=== PATIENT | male | born 1945 | race Caucasian/White ===

== ENCOUNTER 2021-06-27 16:27 | Observation (INO) | payer OTHER, SELFPAY ==
[2021-06-27] VITALS (8 sets, daily range): BP systolic 100–144; BP diastolic 53–84; PULSE 72–97; RESP 16–98; TEMP 36.9; O2SAT 96–98
--- NOTE | ~2021-06-27 | CT_ITS ---
EXAMINATION: CT brain wo con INDICATION: Altered mental status COMPARISON: None TECHNIQUE: Standard unenhanced head CT. The dose-length product (DLP) was 605.33 mGy-cm. The mA was a djusted according to patient size. Iterative reconstruction technique was employed. FINDINGS: There is no acute intraparenchymal hemorrhage. No evidence of mass lesion. No evidence of a cute infarction. There is mild periventricular and subcortical hypodensity probably related to small vessel ischemic disease. There is mild prominence of the sulci and ventricles related to cerebral atr ophy. Intracranial calcified cerebral atherosclerosis is noted. There are no extra-axial collections. There is no mass effect or midline shift. The orbits and soft tissues are unremarkable. There is mil d mucosal thickening of the paranasal sinuses. IMPRESSION: 1. No acute intracranial abnormality. 2. Age related findings. Reviewed, dictated and finalized at location [facility]. [facility]
--- NOTE | ~2021-06-27 | XR_ITS ---
EXAMINATION: XR chest 1V INDICATION: Transient alteration of awareness TECHNIQUE: AP view the chest is obtained. COMPARISON: None available FINDINGS: There are minimal opacities of the lung bases. There is no pleural effusion or pneumothorax . The cardiomediastinal silhouette is normal. IMPRESSION: 1. Minimal bibasilar airspace opacities, consistent with atelectasis versus pneumonia. Reviewed, dictated and finalized at location [facility]. [facility] IMPRESSION: 1. Minimal bibasilar airspace opacities, consistent with atelectasis versus pne umonia.
--- NOTE | 2021-06-27 16:51 | ECG_ITS ---
Measurements Intervals Boutte Rate: 94 P: 30 UT: 153 QRS: -41 QRSD: 76 T: 46 QT: 346 QTc: 433 Interpretive Statements SINUS RHYTHM LEFT AXIS DEVIATION BORDERLINE ST-T WAVE ABNORMALITY- ANT/INF LEADS BASELINE ARTIFACT- I, II, III, AVR, AVL, AVF, V1-V6 BORDERLINE ECG Electronically Signed On 06-27-2021 19:58:32 HEADLIGHT ADJUSTER by Arsen Carey D.O.
--- NOTE | 2021-06-27 16:59 | ED.GENADULT ---
HPI - General Adult General Chief complaint: Altered Mental Status Stated complaint: AMS Time Seen by Provider: 06/27/21 16:38 Source: patient and EMS Mode of arrival: EMS Limitations: altered mental status History of Present Illness HPI narrative: Patient brought in by EMS with reports of altered mental status. EMS informed me that they were contacted to come to a residence today after pt began shaking and became less responsive while watching television with his family. Pt recently moved to the area from [place], which patient states was due to financial reasons. Family does not know much about pt's past medical history. EMS indicated that when they arrived pt was breathing but only aroused to sternal rub. They noted a small amount of dried blood in his mouth. Pt was confused en route while in company of EMS. However when the pulled into parking lot, pt became alert and fidgety. On my initial evaluation, pt states that he has no complaints whatsoever and is unsure why he is here at the hospital. He is able to answer my questions appropriately but exhibits some odd behavior. He does admit to using marijuana regularly. He denies drugs use. He does admit to drinking several days per week. He states he has no underlying medical problems. Related Data Home Medications Medication Instructions Recorded Confirmed No Home Medications 06/27/21 06/27/21 Allergies Allergy/AdvReac Type Severity Reaction Status Date / Time No Known Allergies Allergy Verified 06/27/21 16:43 Review of Systems Review of Systems: CONSTITUTIONAL: Denies fever, chills, or sweats. EYES: Denies visual changes, redness, or discharge. ENT: Denies rhinorrhea, congestion, sore throat, or otalgia. CARDIOVASCULAR: Denies chest pain, palpitations, or edema. RESPIRATORY: Denies cough or dyspnea. GASTROINTESTINAL: Denies abdominal pain, nausea, vomiting, or diarrhea. GENITOURINARY: Denies dysuria or hematuria. SKIN: Denies rash or itching. MUSCULOSKELETAL: Denies back pain, joint pain, or myalgia. NEUROLOGIC: Denies headache, numbness, dizziness, or weakness. PSYCHIATRIC: Denies anxiety or depression. [facility] Past Medical History Medical History (Updated 06/27/21 @ 21:10 by Odell Mcmahon, KIM, BC) No pertinent past medical history Surgical History Surgical History (Updated 06/27/21 @ 16:59 by NAVI PerezP, ) History of left knee surgery Family History Family History Mother No pertinent past medical history Social History Social History Alcohol intake: current Alcohol use details: Reports drinking a few times per week Substance use type: marijuana Living arrangements: with family Gender identity (if verbalized by the patient): Male Spiritual care concerns: No Exam Narrative: GENERAL: Well-appearing, well-nourished, and in no acute distress. HEAD: Normocephalic, atraumatic. EYES: PERRLA and EOMI. ENT: Nares clear, no rhinorrhea or epistaxis. Mucous membranes moist. Oropharynx without tonsillar hypertrophy exudate or other lesions. Bilateral TMs pearly elena nonbulging NECK: Supple. No adenopathy or masses. No carotid bruits or JVD CHEST: Clear to auscultation. No respiratory distress. No wheezes rales or rhonchi HEART: Regular rate and rhythm. No murmur heard. Normal peripheral pulses. ABDOMEN: Soft, nontender, nondistended, normal active bowel sounds. EXTREMITIES: Normal range of motion. No edema. SKIN: Warm, dry, no rash. NEURO: No focal deficits. Alert and oriented x3. NIH Score 0 PSYCH: Odd affect, easily distracted, fidgety Course Course Emergency Course: This is a 75-year-old male who presented with reports of altered mental status. On initial evaluation he was oriented x3 but exhibited bizarre affect. Was called to the room after patient had a witnessed seizure that lasted approxim
--- NOTE | 2021-06-27 17:12 | PC.NURSE ---
Placed seizure pads on patient's bed.
--- NOTE | 2021-06-27 17:15 | PC.NURSE ---
roommate reported that the pt was having a seizure, stopped when staff arrived in room. described as grand mal. vorb for 1 g Keppra iv and Ativan 1 mg ivp x1 from [employer] [facility]
[2021-06-27] MEDS: levETIRAcetam 1000MG/NACL100ML 1,000 MG/100 ML BAG 200 MG (17:17)
[2021-06-27] MEDS: LORazepam INJ (*CRX) 2 MG/ML VIAL (17:17)
[2021-06-27 17:33] LABS: Basophils Percent Auto 0.7 % (0.2-1.2); Eosinophils Absolute Auto 0.1 K/mm3 (0-0.3); Eosinophils Percent Auto 1.6 % (0-4.4); Hematocrit 41.3 % (42.0-52.0); Hemoglobin 13.4 g/dL (14.0-18.0); Immature Granulocyte Absolute 0.01 K/mm3 (0.00-0.031); Immature Granulocyte Percent A 0.2 % (0-0.5); Immature Platelet Fraction Pct 6.7 % (0.9-11.2); Lymphocytes Absolute Auto 0.83 K/mm3 (0.9-3.2); Lymphocytes Percent Auto 18.6 % (18.3-44.2); Mean Corpuscular HGB Conc 32.4 g/dl (32-36); Mean Corpuscular Hemoglobin 32.2 pg (26-34); Mean Corpuscular Volume 99.3 fl (80-100); Mean Platelet Volume 11.1 fl (7.4-10.4); Monocytes Absolute Auto 0.5 K/mm3 (0.1-0.6); Monocytes Percent Auto 10.1 % (2.6-8.5); Neutrophils Absolute Auto 3.1 K/mm3 (1.3-6.7); Neutrophils Percent Auto 68.8 % (45.5-73.1); Platelet Count Result 114 k/mm3 (150-375); Red Blood Count 4.16 M/mm3 (4.6-6.20); Red Cell Distribution Width 13.2 % (11.5-14.5); White Blood Count 4.5 K/mm3 (4.5-10.0)
[2021-06-27 17:40] LABS: INR 1.3; Prothrombin Time 15.8 Seconds (11.1-14.7)
[2021-06-27 17:41] LABS: Partial Thromboplastin Time 26.4 SECONDS (22.3-36.8)
[2021-06-27 17:53] LABS: Ammonia 75 umol/L (9-30); Ethanol < 10 mg/dL (<10)
[2021-06-27 18:00] LABS: Albumin Level 3.9 g/dL (3.5-5.1); Alkaline Phosphatase 64 U/L (38-126); Anion Gap 22 mmol/L (8-16); Aspartate Amino Transferase 59 U/L (17-59); Bilirubin,Total 0.7 mg/dL (0.2-1.3); Blood Urea Nitrogen 8 mg/dL (9-20); Calcium 8.9 mg/dL (8.4-10.2); Carbon Dioxide 15 mmol/L (22-30); Chloride 103 mmol/L (98-107); Estimated CRCL calculation 52 ml/min; Estimated Glomerular Filt Rate > 60; Glucose 125 mg/dL (65-110); Potassium 3.5 mmol/L (3.4-5.0); Sodium 140 mmol/L (137-145)
[2021-06-27 18:23] LABS: Alanine Aminotransferase 60 U/L (4-50); Free T4 Free Thyroxine 1.31 ng/mL (0.78-2.19)
[2021-06-27 18:39] LABS: SARS-CoV-2 RNA PCR Negative
[2021-06-27] MEDS: THIAMINE HCL INJ 100 MG, FOLIC ACID INJ 1 MG, MULTIVITAMINS-12 INJ VIAL 1 5 ML, MULTIVI... IV CONT (19:22)
[2021-06-27 19:48] LABS: Troponin I < 0.012 ng/mL (0.000-0.034)
[2021-06-27 20:09] LABS: Add Urine Microscopic? YES; Appearance Urine Clear (Clear); Bilirubin Urine Negative (Negative); Blood Urine Negative (Negative); Color Urine Yellow (Yellow); Glucose Urine UA Negative (Negative); Ketones Urine Negative (Negative); Leukocyte Esterase Ur Negative LEU/UL (Negative); Mucus Urine Rare /lpf; Nitrate Urine Negative (Negative); Protein Urine Negative (Negative); RBC Urine 0-2 /hpf (0-2); Specific Grav Ur 1.015 (1.001-1.035); WBC Urine 0-3 /hpf
[2021-06-27 20:24] LABS: Amphetamine Screen Urine Negative (Negative); Barbiturate Screen Urine Negative (Negative); Benzodiazepines Screen Urine Negative (Negative); Cannabinoid Screen Urine Positive (Negative); Cocaine Screen Urine Negative (Negative); Methadone Screen Urine Negative (Negative); Opiate Screen Urine Negative (Negative); Phencyclidine Screen Urine Negative (Negative)
--- NOTE | 2021-06-27 20:35 | PM.IMHP ---
H&P: HPI History of Present Illness Date/Time: 06/27/21 20:35 Chief Complaint: Altered mental status. Narrative: This is a 75-year-old male with known significant past medical history, tobacco dependence, substance abuse. Patient was brought to the emergency room via EMS due to patient's altered mental status while watching TV with the family it was noted that he had on episode of shakiness and unresponsiveness. Upon EMS arrival patient was arousable to sternal rub and roots here patient became awake but fidgety most of the history has been obtained upon reviewing medical records as patient cannot provide any history he is alert and awake however disoriented saying random words and only answers yes or no. Preliminary workup was significant for toxicology positive for marijuana, according to emergency room note patient also drinks alcohol. A chest x-ray was significant for infiltrates at the bases. Patient is being admitted for further evaluation, management and treatment. Review of Systems Review of Systems: ROS unobtainable: Yes unobtainable due to mental status (Delirious) [facility] Past Medical History Medical History (Updated 06/28/21 @ 02:25 by Adi Martines MD) No pertinent past medical history Surgical History Surgical History (Updated 06/27/21 @ 16:59 by KIM Perez, ) History of left knee surgery Family History Family History Mother No pertinent past medical history Social History Social History Smoking packs per day: 1 Smoking cigarettes per day: 20.0 Years smoked: 55 Smoking pack-years: 55.00 Smoking status: Heavy tobacco smoker Tobacco type: cigarettes Second hand tobacco smoke exposure: Yes Alcohol intake: current Drinks per week: 24 Alcohol use details: Reports drinking a few times per week Substance use: current Substance use type: marijuana Living arrangements: with family Gender identity (if verbalized by the patient): Male Spiritual care concerns: No Meds Home Medications and Allergies Home Medications Medication Instructions Recorded Confirmed Type No Home Medications 06/27/21 06/27/21 History Allergies Allergy/AdvReac Type Severity Reaction Status Date / Time No Known Allergies Allergy Verified 06/27/21 16:43 Vital Signs Vital Signs - 24 hr 06/27/21 16:33 06/27/21 17:18 06/27/21 18:03 Temperature 98.4 F Pulse Rate 97 86 86 Respiratory Rate 22 H 21 H 16 Blood Pressure 144/58 H 136/84 Pulse Oximetry 98 98 97 06/27/21 19:06 06/27/21 20:03 Temperature Pulse Rate 72 87 Respiratory Rate 16 98 H Blood Pressure 100/66 136/78 Pulse Oximetry 97 97 Exam Narrative: Patient is sitting in [facility]. Const: General: comfortable, no acute distress, well developed, alert, awake and other (Well-appearing, delirious.) Nutritional Appearance: average body habitus Orientation/consciousness: oriented to person and Other orientation findings (Delirious, restless.) HENMT: Head: normal to inspection, normocephalic and atraumatic Ears: hearing grossly normal bilaterally General nose exam: Normal external nose present Face and sinus: normal facial exam Mouth: Yes Normal oral and palatal mucosa present Eyes: General: appearance normal, both eyes and all related structures Alignment and Position: alignment normal Sclera: sclerae normal Pupils: Equal, round and reactive pupils present EOM: EOMs intact bilaterally Neck: Neck: normal visual inspection, full ROM, no lymphadenopathy, supple and no JVD Thyroid: thyroid normal Lymphatic: no lymphadenopathy noted Resp: Effort & Inspection: normal respiratory effort and able to speak in complete sentences Auscultation: clear to auscultation bilaterally, no crackles, no rales, no rhonchi and no wheezes Cardio: Jugular venous distension: no JVD Rate: regular rate
[2021-06-27] MEDS: LORazepam INJ (*CRX) 2 MG/ML VIAL 1 MG IV PUSH ×2 (20:47→21:25)
--- NOTE | 2021-06-27 20:47 | PC.NURSE ---
pt excitable, ripped out iv, very restless. linen cleaned, new iv placed. vorb for Ativan 1 mg ivp from DEPARTURE CLERK [facility] x1
[2021-06-27 21:06] LABS: Troponin I < 0.012 ng/mL (0.000-0.034)
--- NOTE | 2021-06-27 22:08 | PC.NURSE ---
Shaun is the brother of the pt [phone]
--- NOTE | 2021-06-27 23:20 | PC.NURSE ---
Assumed care of pt at this time. Pt resting on stretcher
[2021-06-28] VITALS (8 sets, daily range): BP systolic 93–130; BP diastolic 55–77; PULSE 67–92; RESP 14–20; TEMP 36.4–37.7; O2SAT 97–98; BMI 20.4
[2021-06-28] MEDS: SODIUM CHLORIDE 0.9% IV 1,000 ML 100 ML IV CONT ×3 (01:33→20:58)
[2021-06-28 06:52] LABS: Basophils Percent Auto 0.3 % (0.2-1.2); Eosinophils Percent Auto 0.3 % (0-4.4); Hematocrit 32.5 % (42.0-52.0); Hemoglobin 10.8 g/dL (14.0-18.0); Immature Granulocyte Absolute 0.03 K/mm3 (0.00-0.031); Immature Granulocyte Percent A 0.5 % (0-0.5); Immature Platelet Fraction Pct 6.4 % (0.9-11.2); Lymphocytes Absolute Auto 0.75 K/mm3 (0.9-3.2); Lymphocytes Percent Auto 11.3 % (18.3-44.2); Mean Corpuscular HGB Conc 33.2 g/dl (32-36); Mean Corpuscular Hemoglobin 32.1 pg (26-34); Mean Corpuscular Volume 96.7 fl (80-100); Mean Platelet Volume 11.5 fl (7.4-10.4); Monocytes Absolute Auto 0.5 K/mm3 (0.1-0.6); Monocytes Percent Auto 7.7 % (2.6-8.5); Neutrophils Absolute Auto 5.3 K/mm3 (1.3-6.7); Neutrophils Percent Auto 79.9 % (45.5-73.1); Platelet Count Result 84 k/mm3 (150-375); Red Blood Count 3.36 M/mm3 (4.6-6.20); Red Cell Distribution Width 13.2 % (11.5-14.5); White Blood Count 6.7 K/mm3 (4.5-10.0)
[2021-06-28 07:10] LABS: Alanine Aminotransferase 30 U/L (4-50); Albumin Level 2.9 g/dL (3.5-5.1); Alkaline Phosphatase 45 U/L (38-126); Anion Gap 5 mmol/L (8-16); Aspartate Amino Transferase 39 U/L (17-59); Bilirubin,Total 1.1 mg/dL (0.2-1.3); Blood Urea Nitrogen 10 mg/dL (9-20); Calcium 7.9 mg/dL (8.4-10.2); Carbon Dioxide 26 mmol/L (22-30); Chloride 106 mmol/L (98-107); Estimated CRCL calculation 57 ml/min; Estimated Glomerular Filt Rate > 60; Glucose 91 mg/dL (65-110); Potassium 3.8 mmol/L (3.4-5.0); Sodium 137 mmol/L (137-145)
[2021-06-28] MEDS: LACTULOSE 20 GM/30 ML UDC PO (10:41)
--- NOTE | 2021-06-28 10:59 | WPDNEURCNPN ---
Assessment and Plan Additional Plan encephalopathy treatment as planned Consult date: 06/28/21 HPI: William Luna is a 75 year old male admitted to the hospital for the complaints of change in the mental status and with information that while watching TV with family he had an episode of shakiness and unresponsiveness though on arrival of EMS he was arousable with sternal rub though still fidgety he was noted to have positive toxicology for marijuana and also reportedly he drinks alcohol chest x-ray was positive for infiltration of the basis he was admitted to the hospital for further evaluation and treatment , past history consistent with 55 years smoked 55 is smoking pack years current alcohol intake a 24 drinks per week, no home medication Review of Systems Review of Systems: All systems reviewed & are unremarkable except as noted in HPI and below PMFSH Past Medical History Medical History No pertinent past medical history Surgical History Surgical History History of left knee surgery Family History Family History Mother No pertinent past medical history Social History Social History Smoking packs per day: 1 Smoking cigarettes per day: 20.0 Years smoked: 55 Smoking pack-years: 55.00 Smoking status: Heavy tobacco smoker Tobacco type: cigarettes Second hand tobacco smoke exposure: Yes Alcohol intake: current Drinks per week: 24 Alcohol use details: Reports drinking a few times per week Substance use: current Substance use type: marijuana Living arrangements: with family Gender identity (if verbalized by the patient): Male Spiritual care concerns: No Meds Home Medications and Allergies Home Medications Medication Instructions Recorded Confirmed Type No Home Medications 06/27/21 06/27/21 History Allergies Allergy/AdvReac Type Severity Reaction Status Date / Time No Known Allergies Allergy Verified 06/27/21 16:43 Vital Signs Vital Signs - 24 hr 06/27/21 16:33 06/27/21 17:18 06/27/21 18:03 Temperature 36.9 C Pulse Rate 97 86 86 Respiratory Rate 22 H 21 H 16 Blood Pressure 144/58 H 136/84 Pulse Oximetry 98 98 97 06/27/21 19:06 06/27/21 20:03 06/27/21 20:48 Temperature Pulse Rate 72 87 79 Respiratory Rate 16 98 H 16 Blood Pressure 100/66 136/78 120/53 L Pulse Oximetry 97 97 98 06/27/21 21:26 06/27/21 22:09 06/28/21 00:31 Temperature Pulse Rate 85 85 85 Respiratory Rate 16 16 16 Blood Pressure 126/81 130/83 105/60 Pulse Oximetry 97 96 06/28/21 02:12 06/28/21 04:00 06/28/21 08:00 Temperature 37.7 C H 37.0 C Pulse Rate 91 79 70 Respiratory Rate 20 18 Blood Pressure 93/77 L 97/66 L Pulse Oximetry 97 98 Exam Const: General: alert, anxious and confusion Nutritional Appearance: underweight Orientation/consciousness: oriented to person Limitations: altered mental status HENMT: Head: normal to inspection and normocephalic Ears: hearing grossly normal bilaterally General nose exam: Normal external nose present Face and sinus: normal facial exam Mouth: Yes Normal oral and palatal mucosa present Eyes: General: appearance normal, both eyes and all related structures Visual Scott: normal visual scott by confrontation Alignment and Position: alignment normal Periorbital: periorbital findings normal Eyelids: eyelids normal Conjunctivae: conjunctivae normal Sclera: sclerae normal Cornea: corneas normal Pupils: Equal, round and reactive pupils present EOM: EOMs intact bilaterally Neck: Neck: full ROM and no lymphadenopathy Resp: Effort & Inspection: normal respiratory effort Cardio: Rate: regular rate Neuro: General: moves all extremities, no meningeal signs, CN's II-XI intact bilaterally, confusion and Unable to assess gait
--- NOTE | 2021-06-28 11:17 | WPDNEUROLOGY ---
Neurology EEG Report General Information Date of Study: 06/28/21 TEST eeg DIAGNOSIS Possible new onset seizures CONDITION OF RECORDING drowsy and sleep EEG NUMBER [id number] CLINICAL HISTORY patient's family reported they witness a seizure yesterday and brought patient to the ER no known history of seizures EEG DESCRIPTION basic resting occipital frequency consists of small amount of poorly organized low voltage 9 to 11 hertz per 2nd alpha during brief periods of intermittent wakefulness. Low-voltage 15 to 18 hertz per 2nd beta activity seen diffusely admixed with posterior vexing and waning alpha activity during drowsiness bilateral symmetrical sleep activity seen during sleep. Hyperventilation not done. Photic not. On motor. Nonfocal. Nonlateralizing. IMPRESSION Normal record during drowsiness and sleep
[2021-06-28 13:56] LABS: Ammonia 15 umol/L (9-30)
--- NOTE | 2021-06-28 14:54 | PM.IMPN ---
Progress Note: A&P Assessment and Plan (1) Altered mental status: Code(s): R41.82 - Altered mental status, unspecified Status: Acute Assessment and Plan: Place in observation Regular diet Vitals as per unit protocol Supportive care Suspect secondary to substance of abuse CT of the head reviewed CBC reviewed BMP reviewed Toxicology reviewed 06/28/2021 interval history, patient is 75-year-old male with history of alcohol abuse presented with acute mental status change, patient states he drinks on daily basis, initially his ammonia level was 75 concerning for liver cirrhosis and cause of acute mental status change however repeat ammonia level is normal, patient was started on lactulose 20 mg daily as he does not remember when he had a last BM, patient is a poor historian, he just moved from [facility] to reside with his family and he has not seen a primary care in over 5 years, seen by neurology had EEG essentially normal, patient remains clinically stable will have a PT OT evaluate the patient and further recommendation to follow. (2) Infiltrate of lung present on chest x-ray: Code(s): R91.8 - Other nonspecific abnormal finding of lung field Status: Acute Assessment and Plan: Will start on Rocephin and Zithromax Blood cultures Continue to monitor (3) Substance abuse: Code(s): F19.10 - Other psychoactive substance abuse, uncomplicated Status: Acute Assessment and Plan: Toxicology positive for marijuana, likely to be recreational. Continue to monitor (4) Tobacco dependence: Code(s): F17.200 - Nicotine dependence, unspecified, uncomplicated Status: Acute Assessment and Plan: Nicotine patch as needed Subjective Date/time seen: 06/28/21 14:54 Chief Complaint: Altered mental status. Narrative: This is a 75-year-old male with known significant past medical history, tobacco dependence, substance abuse. Patient was brought to the emergency room via EMS due to patient's altered mental status while watching TV with the family it was noted that he had on episode of shakiness and unresponsiveness. Upon EMS arrival patient was arousable to sternal rub and roots here patient became awake but fidgety most of the history has been obtained upon reviewing medical records as patient cannot provide any history he is alert and awake however disoriented saying random words and only answers yes or no. Preliminary workup was significant for toxicology positive for marijuana, according to emergency room note patient also drinks alcohol. A chest x-ray was significant for infiltrates at the bases. Patient is being admitted for further evaluation, management and treatment. 06/28/2021 interval history, patient is 75-year-old male with history of alcohol abuse presented with acute mental status change, patient states he drinks on daily basis, initially his ammonia level was 75 concerning for liver cirrhosis and cause of acute mental status change however repeat ammonia level is normal, patient was started on lactulose 20 mg daily as he does not remember when he had a last BM, patient is a poor historian, he just moved from [facility] to reside with his family and he has not seen a primary care in over 5 years, seen by neurology had EEG essentially normal, patient remains clinically stable will have a PT OT evaluate the patient and further recommendation to follow. Review of Systems Review of Systems: ROS unobtainable: Yes unobtainable due to medical condition Exam Narrative: elderly frail Patient is comfortable, NAD HEENT: eyes are clear and none icteric LUNGS:CTA HEART: RR S1S2 ABD: not distended Lower extremities: no edema SKIN: nonjaundiced Neuro: grossly intact. Objective Data Vital Signs Vital Signs: Vital Signs - 24 hr 06/27/21 16:33 06/27/21 17:18 06/27/21 18:03 Temperature 98.4 F Pulse Rate 97 86 86 Respiratory Rate 22 H 21 H 16 Blood Pressure 144/58
[2021-06-29] VITALS: PULSE 63
[2021-06-29 04:00] VITALS: PULSE 67
[2021-06-29 05:57] LABS: Hematocrit 33.1 % (42.0-52.0); Immature Platelet Fraction Pct 6.4 % (0.9-11.2); Mean Corpuscular HGB Conc 33.2 g/dl (32-36); Mean Corpuscular Hemoglobin 33.2 pg (26-34); Mean Platelet Volume 11.6 fl (7.4-10.4); Platelet Count Result 77 k/mm3 (150-375); Red Blood Count 3.31 M/mm3 (4.6-6.20); Red Cell Distribution Width 13.2 % (11.5-14.5); White Blood Count 3.9 K/mm3 (4.5-10.0)
[2021-06-29 06:04] LABS: Ammonia < 9 umol/L (9-30)
[2021-06-29 06:09] LABS: Alanine Aminotransferase 27 U/L (4-50); Albumin Level 2.8 g/dL (3.5-5.1); Alkaline Phosphatase 49 U/L (38-126); Anion Gap 4 mmol/L (8-16); Aspartate Amino Transferase 38 U/L (17-59); Blood Urea Nitrogen 10 mg/dL (9-20); Calcium 7.9 mg/dL (8.4-10.2); Carbon Dioxide 24 mmol/L (22-30); Chloride 111 mmol/L (98-107); Estimated CRCL calculation 57 ml/min; Estimated Glomerular Filt Rate > 60; Glucose 82 mg/dL (65-110); Magnesium 1.8 mg/dL (1.6-2.3); Potassium 4.3 mmol/L (3.4-5.0); Sodium 139 mmol/L (137-145)
[2021-06-29 08:00] VITALS: BP 124/68; PULSE 60; PULSE 70; RESP 19; TEMP 36.4; O2SAT 98
[2021-06-29] MEDS: LACTULOSE 20 GM/30 ML UDC PO (10:57)
[2021-06-29] MEDS: SODIUM CHLORIDE 0.9% IV 1,000 ML 100 ML IV CONT (10:58)
[2021-06-29 12:00] VITALS: PULSE 60
--- NOTE | 2021-06-29 12:14 | WPDNEUROPN ---
Progress Note: A&P Additional Plan considering the EEG is normal and considering the history as documented previously the problem is metabolic and related to the involvement in alcohol and drug treatment will be accordingly Subjective Date/time seen: 06/29/21 12:14 initially seen for encephalopathy in addition to the complaints of unresponsiveness and shakiness, EEG was obtained to rule out the possibility of seizure and came back normal and additionally CT scan of the head is normal too, Review of Systems Review of Systems: All systems reviewed & are unremarkable except as noted in HPI and below Objective Data Vital Signs Vital Signs: Vital Signs - 24 hr 06/28/21 13:35 06/28/21 14:00 06/28/21 16:00 Temperature 36.7 C Pulse Rate 70 76 70 Respiratory Rate 20 Blood Pressure 130/72 Pulse Oximetry 98 06/28/21 20:00 06/29/21 00:00 06/29/21 04:00 Temperature 36.4 C Pulse Rate 67 63 67 Respiratory Rate 14 Blood Pressure 112/55 L Pulse Oximetry 98 06/29/21 08:00 Temperature 36.4 C Pulse Rate 60 Respiratory Rate 19 Blood Pressure 124/68 Pulse Oximetry 98 Intake/Output Intake/Output: Intake & Output 06/26/21 06/27/21 06/28/21 06/29/21 23:59 23:59 23:59 23:59 Intake Total 1163.2 2520 1060 Output Total 400 100 Balance 1163.2 2120 960 Meds/Results Medications: Active Medications Generic Name Dose Route Start Last Admin Trade Name Freq PRN Reason Stop Dose Admin Acetaminophen 650 mg 06/27/21 21:00 Acetaminophen 325 Mg Tablet PO Q4H PRN Mild Pain (1-3) or Fever Sodium Chloride 1,000 mls @ 100 mls/hr 06/27/21 21:00 06/29/21 10:58 Normal Saline Iv IV CONT 100 mls/hr .Q10H MARK Administration Lactulose 20 gm 06/29/21 09:00 06/29/21 10:57 Lactulose 20 Gm/30 Ml Udc PO 20 gm QAM MARK Administration Ondansetron HCl 4 mg 06/27/21 21:00 Ondansetron Inj 4 Mg/2 Ml Vial IV PUSH Q4H PRN Nausea Radiology Results: ITS Impressions Head CT 06/27/21 17:43 IMPRESSION: 1. No acute intracranial abnormality. 2. Age related findings. Chest X-Ray 06/27/21 18:55 IMPRESSION: 1. Minimal bibasilar airspace opacities, consistent with atelectasis versus pneumonia. Labs Labs: Laboratory Results - last 24 hr 06/28/21 06/28/21 06/29/21 13:24 13:24 05:39 WBC 3.9 L RBC 3.31 L Hgb 11.0 L Hct 33.1 L MCV 100.0 MCH 33.2 MCHC 33.2 RDW 13.2 Plt Count 77 L MPV 11.6 H % Immature Plt Fraction 6.4 Sodium Potassium Chloride Carbon Dioxide Anion Gap BUN Creatinine Estim Creat Clear Calc Estimated GFR Glucose Calcium Magnesium 2.0 Total Bilirubin AST ALT Alkaline Phosphatase Ammonia 15 Total Protein Albumin 06/29/21 06/29/21 05:39 05:39 WBC RBC Hgb Hct MCV MCH MCHC RDW Plt Count MPV % Immature Plt Fraction Sodium 139 Potassium 4.3 Chloride 111 H Carbon Dioxide 24 Anion Gap 4 L BUN 10 Creatinine 0.80 Estim Creat Clear Calc 57 Estimated GFR > 60 Glucose 82 Calcium 7.9 L Magnesium 1.8 Total Bilirubin 1.0 AST 38 ALT 27 Alkaline Phosphatase 49 Ammonia < 9 L Total Protein 5.0 L Albumin 2.8 L Amg Follow-up Billing Inpatient Follow-up [id number] [facility] [place]
--- NOTE | 2021-06-29 13:36 | PM.DS ---
DS: Admitting Diagnosis Discharge Date 06/29/21 Admitting Diagnosis (1) Altered mental status: Code(s): R41.82 - Altered mental status, unspecified (2) Infiltrate of lung present on chest x-ray: Code(s): R91.8 - Other nonspecific abnormal finding of lung field (3) Substance abuse: Code(s): F19.10 - Other psychoactive substance abuse, uncomplicated (4) Tobacco dependence: Code(s): F17.200 - Nicotine dependence, unspecified, uncomplicated DS: Discharge Diagnosis Discharge Diagnosis (1) Altered mental status: Code(s): R41.82 - Altered mental status, unspecified Status: Acute (2) Infiltrate of lung present on chest x-ray: Code(s): R91.8 - Other nonspecific abnormal finding of lung field Status: Acute Assessment and Plan: Will start on Rocephin and Zithromax Blood cultures Continue to monitor (3) Substance abuse: Code(s): F19.10 - Other psychoactive substance abuse, uncomplicated Status: Acute Assessment and Plan: Toxicology positive for marijuana, likely to be recreational. Continue to monitor (4) Tobacco dependence: Code(s): F17.200 - Nicotine dependence, unspecified, uncomplicated Status: Acute Assessment and Plan: Nicotine patch as needed (5) Hyperammonemic encephalopathy: Code(s): T59.891A - Toxic effect of other specified gases, fumes and vapors, accidental (unintentional), initial encounter; G92.8 - Other toxic encephalopathy Status: Acute (6) Hyperammonemia, type III: Code(s): E72.20 - Disorder of urea cycle metabolism, unspecified Status: Acute DS: Summary Hospital Course Reason for hospitalization: Altered mental status. Hospital Course: Date/time seen: 06/28/21 14:54 Chief Complaint: Altered mental status. Narrative: This is a 75-year-old male with known significant past medical history, tobacco dependence, substance abuse. Patient was brought to the emergency room via EMS due to patient's altered mental status while watching TV with the family it was noted that he had on episode of shakiness and unresponsiveness. Upon EMS arrival patient was arousable to sternal rub and roots here patient became awake but fidgety most of the history has been obtained upon reviewing medical records as patient cannot provide any history he is alert and awake however disoriented saying random words and only answers yes or no. Preliminary workup was significant for toxicology positive for marijuana, according to emergency room note patient also drinks alcohol. A chest x-ray was significant for infiltrates at the bases. Patient is being admitted for further evaluation, management and treatment. Place in observation Regular diet Vitals as per unit protocol Supportive care Suspect secondary to substance of abuse CT of the head reviewed CBC reviewed BMP reviewed Toxicology reviewed 06/28/2021 interval history, patient is 75-year-old male with history of alcohol abuse presented with acute mental status change, patient states he drinks on daily basis, initially his ammonia level was 75 concerning for liver cirrhosis and cause of acute mental status change however repeat ammonia level is normal, patient was started on lactulose 20 mg daily as he does not remember when he had a last BM, patient is a poor historian, he just moved from [facility] to reside with his family and he has not seen a primary care in over 5 years, seen by neurology had EEG essentially normal, patient remains clinically stable will have a PT OT evaluate the patient and further recommendation to follow. 06/29/21 Hepatic encephalopathy has resolved Patient will be discharged home in stable condition on lactulose 20 g daily He is advised to follow-up with the [facility] to establish care and to be seen by an bowling ball assembler for his chronic but worsening blurry vision Time Spent with Patient Time attestation: Total time spent providing and
[2021-06-29 13:56] VITALS: BP 122/59; PULSE 65; RESP 19; TEMP 36.5; O2SAT 99
== END 2021-06-29 14:15 | disposition home or self-care (01) ==
LOC: ANHED 21:10 → ANH3MEDSUR 06-28 14:14
PROVIDERS: Family Medicine; Admitting Provider Internal Medicine; Emergency Provider Nurse Practitioner; Visit Provider Hospitalist
DX: G92.8 Other toxic encephalopathy (principal); T59.891A Toxic effect of other specified gases, fumes and vapors, accidental (unintentional), initial encounter; E72.20 Disorder of urea cycle metabolism, unspecified; R41.82 Altered mental status, unspecified; R56.9 Unspecified convulsions; R91.8 Other nonspecific abnormal finding of lung field; F17.210 Nicotine dependence, cigarettes, uncomplicated; F12.10 Cannabis abuse, uncomplicated; Z20.822 Contact with and (suspected) exposure to COVID-19
CPT/HCPCS: 36415; 70450; 71045; 80053; 80307; 81001; 82140; 83735; 84439; 84443; 84484; 85025; 85027; 85055; 85610; 85730; 93005; 95816; 96361; 96365; 96366; 96367; 96375; 96376; 99285; A9270; C9803; G0378; J0456; J0696; J1953; J2060; J3411; J3475; J7030; U0003; U0005